=== PATIENT | male | born 1990 | race Caucasian/White ===

== ENCOUNTER 2018-04-12 20:31 | Emergency (ER) | payer OTHER ==
[~2018-04-12] VITALS: Ht 180.3 cm; Wt 68.0 kg
[2018-04-12] MEDS ORDERED: DOLOGEN CAPLET1 EACH (21:27)
== END 2018-04-12 23:01 | disposition home or self-care (01) ==
LOC: ER 20:31
DX: S60.221A Contusion of right hand, initial encounter (principal); V19.9XXA Pedal cyclist (driver) (passenger) injured in unspecified traffic accident, initial encounter; Y93.89 Activity, other specified; Y92.488 Other paved roadways as the place of occurrence of the external cause; Y99.8 Other external cause status